=== PATIENT | male | born 1975 | race African-American/Black ===

== ENCOUNTER 2017-12-12 00:57 | Emergency (ER) | payer OTHER, MEDICARE ==
[~2017-12-12] VITALS: Ht 175.3 cm; Wt 75.0 kg
[2017-12-12 00:58] VITALS: BP 135/80; PULSE 80; RESP 16; TEMP 98.7; O2SAT 97
[2017-12-12] MEDS ORDERED: CEPH-460 PO (02:23)
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
[2017-12-12] MEDS ORDERED: TETANUS/DIPHTHERIA TOXOID ADULT 0.5 ML VIAL IM ONE (02:30)
== END 2017-12-12 02:37 | disposition home or self-care (01) ==
LOC: NEPD 00:57
DX: S61.412A Laceration without foreign body of left hand, initial encounter (principal); F17.210 Nicotine dependence, cigarettes, uncomplicated; F12.90 Cannabis use, unspecified, uncomplicated; W25.XXXA Contact with sharp glass, initial encounter; Z23 Encounter for immunization
CPT/HCPCS: 90471; 90714

== ENCOUNTER 2018-03-07 13:27 | Emergency (ER) | payer OTHER, MEDICARE ==
[~2018-03-07] VITALS: Ht 182.9 cm; Wt 88.5 kg
[~2018-03-07 13:27] MED LIST: CEPH-460 PO
[2018-03-07 13:40] VITALS: BP 131/59; PULSE 68; RESP 18; TEMP 98.7; O2SAT 97
[2018-03-07] MEDS ORDERED: BACT800T5 PO (14:01)
[2018-03-07] MEDS ORDERED: IBUP1TAB7 PO (14:01)
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
[2018-03-07] MEDS ORDERED: LIDOCAINE HCL 1% PF 30 ML VIAL INFIL ONE (14:15)
[2018-03-07] MEDS ORDERED: SULFAMETHOXAZOLE-TRIMETHOPRIM DS 800-160 MG TAB PO ONE (14:15)
== END 2018-03-07 14:53 | disposition home or self-care (01) ==
LOC: NEPD 13:27
DX: L03.011 Cellulitis of right finger (principal); Z72.0 Tobacco use
CPT/HCPCS: 10060; 87070; 87205